=== PATIENT | male | born 1985 | race Caucasian/White ===

== ENCOUNTER 2022-02-11 13:17 | Emergency (ER) | payer SELFPAY ==
[2022-02-11 13:36] VITALS: BP 134/76; PULSE 90; RESP 16; TEMP 36.7; O2SAT 100
--- NOTE | 2022-02-11 14:32 | ED.SKABFB ---
HPI - Skin/Abscess/Foreign Bdy General Chief complaint: Skin/Abscess/Foreign Body Stated complaint: Swelling on left side of face; Time Seen by Provider: 02/11/22 14:20 Source: patient Mode of arrival: ambulatory Limitations: no limitations History of Present Illness HPI narrative: Mr. Briceño is a 36-year-old male patient presenting to the clinic today with complaints of a rash to the left side of his face near his left eye. He reports that this rash developed a few days ago and has gradually gotten worse and more swollen. He denies any change in environment, medications, or food. He denies being stung by a insect or bitten by an insect Related Data Allergies Allergy/AdvReac Type Severity Reaction Status Date / Time nkda Allergy Unknown Other Uncoded 02/11/22 14:00 Review of Systems Review of Systems: Pertinent positives per HPI. Patient denies any fever, chills, rash, headache, visual changes, dizziness, cough, runny nose, sore throat, shortness of breath, chest pain, palpitations, nausea, vomiting, diarrhea, constipation, abdominal pain, or any urinary issues. PMFSH Comments At the time of my signature, I reviewed and agree with the nursing past medical, surgical, social, and family history. There is no relevant family history pertinent to the patient complaint. Exam Narrative: General: Well-developed, well nourished, in no apparent distress Head: Normocephalic, atraumatic. Cardio: Regular rate and rhythm, s1 and s2 normal, no murmur appreciated. Resp: Clear to auscultation bilaterally, no rhonchi, rales, wheezing or rubs. Integumentary: [place], warm, and dry, blister like raised lesions to the left upper cheek near the left eye with lower orbital swelling Course Course Emergency Course: Portions of this record may have been created with voice recognition software. Level of Care: Express Care Visit Vital Signs Vital signs: Vital Signs Temperature 36.7 C 02/11/22 13:36 Pulse Rate 90 02/11/22 13:36 Respiratory Rate 16 02/11/22 13:36 Blood Pressure 134/76 02/11/22 13:36 Pulse Oximetry 100 02/11/22 13:36 Oxygen Delivery Room Air 02/11/22 13:36 Temperature 36.7 C 02/11/22 13:36 Pulse Rate 90 02/11/22 13:36 Respiratory Rate 16 02/11/22 13:36 Blood Pressure 134/76 02/11/22 13:36 Pulse Oximetry 100 02/11/22 13:36 Oxygen Delivery Room Air 02/11/22 13:36 Vital signs reviewed MDM - Skin/Abscess/Foreign Bdy MDM Narrative Medical decision making narrative: at the time of visit patient is resting comfortably on the exam table. I feel as though this rash may be likely she had herpes zoster however I cannot rule out infection or allergic cause. Sinemet a prescription for some Valtrex, prednisone, and doxycycline as this is near his eye. supportive measures were discussed with the patient he voiced understanding of discharge instructions and agrees to treatment plan Differential Diagnosis Differential diagnosis: Likely abscess of skin or subcutaneous tissue, urticaria, herpes zoster, insect bites and contact dermatitis Discharge Plan Discharge Clinical Impression: Rash/skin eruption Patient Disposition: Home, Self-Care Condition: Stable Instructions: Antibiotic Form, Acute Rash (ED) Additional Instructions: Rash is questionable for herpes zoster, insect bites, or allergic reaction apply cool compresses to the affected area may take Benadryl as needed for itching- 25-50 mg every 6 hours as needed take prednisone,valacyclovir, and doxycycline as prescribed follow-up with your PCP in 3-5 days if symptoms persist or sooner if they worsen Prescriptions: New prednisone 20 mg tablet 40 mg PO DAILY 5 Days Qty: 10 0RF doxycycline monohydrate 100 mg capsule 100 mg PO BID 7 Days Qty: 14 0RF valacyclovir [Valtrex] 1 gram tablet 1,000 mg PO Q8H 7 Days Qty: 21 0RF acyclovir 800 mg tablet 800 mg PO Q4H 7 Days Qty: 42 0RF Rx Instr
== END 2022-02-11 14:49 | disposition home or self-care (01) ==
PROVIDERS: Emergency Provider Nurse Practitioner Family
DX: R21 Rash and other nonspecific skin eruption (principal)
CPT/HCPCS: 99213; G0463